=== PATIENT | female | born 1985 | race Two or more races ===

== ENCOUNTER 2021-08-16 14:53 | Emergency (ER) | payer SELFPAY ==
[~2021-08-16] VITALS: Ht 170.2 cm; Wt 68.0 kg
[2021-08-16] MEDS ORDERED: hydrALAZINE HCL 20 MG/ML VL IV ONE (16:15)
[2021-08-16 16:28] LABS: Basophils # (auto) 0 10 ^3/uL (0-0.2); Basophils % (auto) 0.3 % (0.0-2.0); Eosinophils # (auto) 0.2 10 ^3/uL (0-0.8); Eosinophils % (auto) 1.5 % (0.0-7.0); Hematocrit 33.1 % (36.0-46.0); Hemoglobin 10.8 g/dL (12.2-16.2); Lymphocytes # (auto) 1.6 10 ^3/uL (0.4-5.4); Lymphocytes % (auto) 11.2 % (10.0-50.0); Mean Corpuscular Hemoglobin 27.1 pg (28.0-32.0); Mean Corpuscular Hgb Conc. 32.6 g/dL (32.0-36.0); Mean Corpuscular Volume 83.2 fL (80.0-100.0); Monocytes # (auto) 0.6 10 ^3/uL (0-1.3); Monocytes % (auto) 4.5 % (0.0-12.0); Neutrophils # (auto) 11.6 10 ^3/uL (1.6-8.6); Neutrophils % (auto) 82.5 % (37.0-80.0); Red Blood Cells 3.97 10^6/uL (4.0-5.20); Red Cell Distribution Width 18.3 % (11.8-14.3)
[2021-08-16 16:45] LABS: Albumin 2.8 g/dL (3.4-5.0); Calcium 8.4 mg/dL (8.5-10.1); Magnesium 2.9 mg/dL (1.6-2.6); Potassium 4.2 mmol/L (3.5-5.1)
[2021-08-16 16:53] LABS: BUN/Creatinine Ratio 32.1; Bilirubin, Total 0.4 mg/dL (0.2-1.0); Total Protein 6.7 g/dL (6.4-8.2); Uric Acid 5.1 mg/dL (2.6-6.0)
[2021-08-16 17:38] LABS: Urine Bacteria NONE SEEN /hpf (None Seen); Urine Blood 3+ /uL (Negative); Urine Mucus FEW (None Seen); Urine Specific Gravity 1.017 (1.001-1.035); Urine WBC 995 /hpf (0 - 5); Urine WBC Clumps PRESENT /hpf (None Seen)
[2021-08-16 18:15] VITALS: BP 152/86
== END 2021-08-16 18:43 | disposition home or self-care (01) ==
LOC: ER 14:53
DX: O14.95 Unspecified pre-eclampsia, complicating the puerperium (principal); R74.8 Abnormal levels of other serum enzymes; N39.0 Urinary tract infection, site not specified; R94.31 Abnormal electrocardiogram [ECG] [EKG]
CPT/HCPCS: 36415; 71046; 76856; 80053; 81001; 83615; 83735; 83880; 84484; 84550; 85025; 93005; 96374; 99285; J0360